=== PATIENT | female | born 1965 | race Caucasian/White ===

== ENCOUNTER 2017-11-08 14:45 | Emergency (ER) | payer MEDICARE, OTHER ==
[~2017-11-08] VITALS: Ht 162.6 cm; Wt 198.7 kg
[~2017-11-08 14:45] MED LIST: ALBU90OI; ALBU90OI6 INH; ALBU90OI61; AMLO10 PO; ATOR80 PO; BACL20 PO; BENA10; BENA20 PO; BENZ100A; BENZ100A PO; BUTRANS1 EAC1; Bactrim 400-801 EACH PO; CARI350 PO; CIPR500 PO; CLIN150; CLIN300 PO; CULTURELLE1 EACH; CYCL10 PO; DIAZ2 PO; DICL.1SO OD; DIPH50; DULO60 PO; ENOX100I SUBQ; ERGO400 PO; ESCI10; ESCI10 PO; ESOM20; ESOM20 PO; FEXO180; FLUSAL5005; FURO20; FURO40 PO; GABA300 PO; GLUCOSE BITS1 GM PO; HYDACE5 PO; HYDACE7.5L; HYDCHL25 PO; HYDCOR2.5C PR; HYDMOR2 PO; Humalog; INSULANI SUBQ; LEVSOD137 PO; LIDO5TP; LIDO5TP TOP; LOSA50 PO; METF500; METF500 PO; METO2.5; Mirena1 EACH; NAPR500 PO; NAPR500EC; NEBI10 PO; NEBI5 PO; NITR.4SL; NITR.4SL SL; OMEP20ER; OXYC5; POTCHL20ER; POTCHL20ER PO; PRAV10 PO; PROM25; PROM25 PO; Pyridium200 MG PO; RXCLIN PO; SPIHYD PO; TIOT18; TOLT4; TRAACE; TRAACE PO; Zofran Odt4 MG SL
[2017-11-08] MEDS ORDERED: Bactrim Ds Tab1 EACH PO (15:56)
[2018-09-24] MEDS ORDERED: TOUJEO MAX300 UNIT/1 (19:20)
[2018-09-24] MEDS ORDERED: CEPH500 PO (19:32)
[2018-09-24] MEDS ORDERED: Bactrim Ds Tab1 EACH PO (19:32)
== END 2017-11-08 16:05 | disposition home or self-care (01) ==
LOC: ER 14:45
DX: L03.116 Cellulitis of left lower limb (principal); K21.9 Gastro-esophageal reflux disease without esophagitis; E11.9 Type 2 diabetes mellitus without complications; G47.30 Sleep apnea, unspecified; E78.5 Hyperlipidemia, unspecified; Z88.1 Allergy status to other antibiotic agents; Z88.5 Allergy status to narcotic agent; Z88.6 Allergy status to analgesic agent; Z88.0 Allergy status to penicillin; Z88.8 Allergy status to other drugs, medicaments and biological substances; Z79.4 Long term (current) use of insulin; Z79.899 Other long term (current) drug therapy; Z98.890 Other specified postprocedural states; Z87.891 Personal history of nicotine dependence
CPT/HCPCS: 99282

== ENCOUNTER 2018-06-28 09:21 | Inpatient (IN) | payer MEDICARE, OTHER ==
[~2018-06-28] VITALS: Ht 172.7 cm; Wt 225.0 kg
[~2018-06-28 09:21] MED LIST changes: +Bactrim Ds Tab1 EACH PO
[2018-06-28 09:42] LABS: BASOPHILS ABSOLUTE AUTO 0.04 K/mm3 (0.00-0.23); BASOPHILS PERCENT AUTO 1 % (0-2); EOSINOPHILS ABSOLUTE AUTO 0.35 K/mm3 (0.00-0.68); EOSINOPHILS PERCENT AUTO 6 % (0-6); Hematocrit 39.1 % (33.0-51.0); Hemoglobin 12.3 g/dL (11.5-16.0); IMMATURE GRAN ABSOLUTE AUTO 0.04 K/mm3 (0.00-0.10); IMMATURE GRAN PERCENT AUTO 1 % (0-1); LYMPHOCYTES ABSOLUTE AUTO 2.16 K/mm3 (0.84-5.20); LYMPHOCYTES PERCENT AUTO 36 % (21-46); MONOCYTES ABSOLUTE AUTO 0.32 K/mm3 (0.16-1.47); MONOCYTES PERCENT AUTO 5 % (4-13); Mean Corpuscular HGB Conc 31.5 g/dL (31.5-36.5); Mean Corpuscular Volume 92 fL (80-100); Mean Platelet Volume 10.6 fL (9.1-12.4); NEUTROPHILS ABSOLUTE AUTO 3.12 K/mm3 (1.96-9.15); NEUTROPHILS PERCENT AUTO 52 % (41-73); Platelet Count 175 K/mm3 (150-400); RDW Coefficient Variation 15.6 % (11.7-14.2); RDW Standard Deviation 52.7 fL (35.1-46.3); Red Blood Cell Count 4.24 M/mm3 (3.80-5.20); White Blood Cell Count 6.03 K/mm3 (4.00-11.30)
[2018-06-28 10:03] LABS: Alanine Aminotransfer (ALT/SGP 42 U/L (12-78); Albumin, Blood 3.4 g/dL (3.4-5.0); Albumin/Globulin Ratio 0.8 (0.8-1.8); Alk Phos 192 U/L (50-136); Anion Gap 9 mmol/L (6-16); Aspartate Aminotrans (AST/SGOT 68 U/L (12-37); Bilirubin, Total 1.1 mg/dL (0.1-1.0); Blood Urea Nitrogen 23 mg/dL (8-24); Bun/Creatinine Ratio 18.7 (12.0-20.0); CO2, Blood 25 mmol/L (21-32); Chloride, Blood 106 mmol/L (98-108); Creatinine, Blood 1.23 mg/dL (0.40-1.00); Globulin, Blood 4.4 g/dL (2.2-4.0); Glomerular Filtration Rate 48 (60-); Glucose, Blood 175 mg/dL (70-99); Potassium, Blood 4.7 mmol/L (3.5-5.5); Sodium, Blood 140 mmol/L (136-145); Total Protein, Blood 7.8 g/dL (6.4-8.2); Troponin I <0.015 ng/mL (0.000-0.040)
[2018-06-28 12:11] LABS: PCO2 Arterial 43.1 mmHg (35-45); PO2 Arterial 77.2 mmHg (80-100); pH Blood Arterial 7.37 (7.35-7.45)
[2018-06-28] MEDS ORDERED: TORSE20 PO (15:40)
[2018-06-28] MEDS ORDERED: Nexium40 MG PO (15:50)
[2018-06-28] MEDS ORDERED: OXYC5 PO (15:52)
[2018-06-28 19:46] LABS: CPK Creatine Kinase 167 U/L (26-193); Creatine Kinase MB 1.9 ng/mL (0.0-3.6); Creatine Kinase MB Index 1.1 (0.0-4.0)
[2018-06-28 20:07] LABS: Troponin I <0.015 ng/mL (0.000-0.040)
[2018-06-29 02:34] LABS: Alanine Aminotransfer (ALT/SGP 33 U/L (12-78); Albumin, Blood 2.9 g/dL (3.4-5.0); Albumin/Globulin Ratio 0.8 (0.8-1.8); Alk Phos 152 U/L (50-136); Anion Gap 8 mmol/L (6-16); Aspartate Aminotrans (AST/SGOT 45 U/L (12-37); Bilirubin, Direct 0.5 mg/dL (0.0-0.3); Bilirubin, Indirect 1.1 mg/dL (0.1-0.7); Bilirubin, Total 1.6 mg/dL (0.1-1.0); Blood Urea Nitrogen 27 mg/dL (8-24); Bun/Creatinine Ratio 15.8 (12.0-20.0); CHOL/HDL RATIO 5.8; CO2, Blood 24 mmol/L (21-32); Calcium, Blood 7.8 mg/dL (8.5-10.1); Chloride, Blood 104 mmol/L (98-108); Cholesterol 175 mg/dL (50-200); Creatinine, Blood 1.71 mg/dL (0.40-1.00); Globulin, Blood 3.8 g/dL (2.2-4.0); Glomerular Filtration Rate 33 (60-); Glucose, Blood 198 mg/dL (70-99); HDL Cholesterol 30 mg/dL (>39); Low Density Lipoprotein Chol 119 mg/dL (0-110); Potassium, Blood 4.4 mmol/L (3.5-5.5); Sodium, Blood 136 mmol/L (136-145); Total Protein, Blood 6.7 g/dL (6.4-8.2); Triglycerides 130 mg/dL (30-160); Troponin I <0.015 ng/mL (0.000-0.040); Very Low Density Lipoprot Chol 26 mg/dL (6-32)
[2018-06-29 09:55] LABS: Hematocrit 31.4 % (33.0-51.0); Mean Corpuscular HGB Conc 31.8 g/dL (31.5-36.5); Mean Corpuscular Volume 94 fL (80-100); Mean Platelet Volume 10.7 fL (9.1-12.4); Platelet Count 119 K/mm3 (150-400); RDW Coefficient Variation 15.7 % (11.7-14.2); RDW Standard Deviation 54.3 fL (35.1-46.3); Red Blood Cell Count 3.33 M/mm3 (3.80-5.20); White Blood Cell Count 8.19 K/mm3 (4.00-11.30)
[2018-06-29] MEDS ORDERED: DIPH50 PO (17:56)
[2018-06-30 05:51] LABS: Albumin, Blood 2.9 g/dL (3.4-5.0); Albumin/Globulin Ratio 0.7 (0.8-1.8); Bilirubin, Total 1.3 mg/dL (0.1-1.0); Creatinine, Blood 2.76 mg/dL (0.40-1.00); Globulin, Blood 4.2 g/dL (2.2-4.0); Potassium, Blood 4.6 mmol/L (3.5-5.5); Total Protein, Blood 7.1 g/dL (6.4-8.2)
[2018-06-30 16:07] LABS: Bun/Creatinine Ratio 15.9 (12.0-20.0); Calcium, Blood 8.1 mg/dL (8.5-10.1); Creatinine, Blood 2.52 mg/dL (0.40-1.00); Potassium, Blood 4.5 mmol/L (3.5-5.5)
[2018-06-30 19:31] LABS: Source, Urine Clean Catch
[2018-06-30 19:39] LABS: Appearance, Urine Clear (Clear); Bilirubin, Urine Neg (Neg); Blood, Urine 4+ (Neg); Color, Urine Yellow (P-Yellow); Glucose Qualitative, Urine Neg (Neg); Ketones, Urine Neg (Neg); Leukocyte Esterase, Urine 1+ (Neg); Nitrite, Urine Neg (Neg); Protein, Urine 1+ (Neg); Specific Gravity, Urine 1.015 (1.003-1.022); Urobilinogen, Urine NORM (Normal)
[2018-06-30 20:09] LABS: Bacteria Mod /hpf; Squamous Epithelial Cells Few /hpf (Few)
[2018-07-01 05:22] LABS: Hematocrit 29.5 % (33.0-51.0); Hemoglobin 9.5 g/dL (11.5-16.0); Mean Corpuscular HGB 29.3 pg (26.0-34.0); Mean Corpuscular HGB Conc 32.2 g/dL (31.5-36.5); Mean Platelet Volume 10.9 fL (9.1-12.4); Platelet Count 131 K/mm3 (150-400); RDW Coefficient Variation 15.4 % (11.7-14.2); RDW Standard Deviation 50.9 fL (35.1-46.3); Red Blood Cell Count 3.24 M/mm3 (3.80-5.20); White Blood Cell Count 6.11 K/mm3 (4.00-11.30)
[2018-07-01 05:24] LABS: Mean Corpuscular Volume 91 fL (80-100)
[2018-07-01 05:54] LABS: Albumin, Blood 2.6 g/dL (3.4-5.0); Albumin/Globulin Ratio 0.7 (0.8-1.8); Bun/Creatinine Ratio 19.7 (12.0-20.0); Calcium, Blood 7.6 mg/dL (8.5-10.1); Creatinine, Blood 2.34 mg/dL (0.40-1.00); Globulin, Blood 3.7 g/dL (2.2-4.0); Potassium, Blood 4.5 mmol/L (3.5-5.5); Total Protein, Blood 6.3 g/dL (6.4-8.2)
[2018-07-01 08:16] LABS: PCO2 Arterial 44.2 mmHg (35-45); PO2 Arterial 66.4 mmHg (80-100); pH Blood Arterial 7.34 (7.35-7.45)
[2018-07-02 06:05] LABS: Anion Gap 10 mmol/L (6-16); Blood Urea Nitrogen 48 mg/dL (8-24); CO2, Blood 22 mmol/L (21-32); Calcium, Blood 7.9 mg/dL (8.5-10.1); Chloride, Blood 101 mmol/L (98-108); Glomerular Filtration Rate 28 (60-); Glucose, Blood 178 mg/dL (70-99); Magnesium, Blood 2.3 mg/dL (1.6-2.4); Potassium, Blood 4.9 mmol/L (3.5-5.5); Sodium, Blood 133 mmol/L (136-145)
[2018-07-02 06:10] LABS: Hematocrit 32.4 % (33.0-51.0); Hemoglobin 10.5 g/dL (11.5-16.0); Mean Corpuscular HGB 29.2 pg (26.0-34.0); Mean Corpuscular HGB Conc 32.4 g/dL (31.5-36.5); Mean Corpuscular Volume 90 fL (80-100); Mean Platelet Volume 11.2 fL (9.1-12.4); Platelet Count 142 K/mm3 (150-400); RDW Coefficient Variation 15.5 % (11.7-14.2); RDW Standard Deviation 51.2 fL (35.1-46.3); Red Blood Cell Count 3.59 M/mm3 (3.80-5.20); White Blood Cell Count 5.83 K/mm3 (4.00-11.30)
[2018-07-03 05:14] LABS: Hematocrit 32.3 % (33.0-51.0); Hemoglobin 10.4 g/dL (11.5-16.0)
[2018-07-03 05:34] LABS: Albumin, Blood 2.9 g/dL (3.4-5.0); Anion Gap 8 mmol/L (6-16); Blood Urea Nitrogen 43 mg/dL (8-24); Bun/Creatinine Ratio 25.3 (12.0-20.0); CO2, Blood 27 mmol/L (21-32); Calcium, Blood 8.2 mg/dL (8.5-10.1); Chloride, Blood 102 mmol/L (98-108); Glomerular Filtration Rate 33 (60-); Glucose, Blood 208 mg/dL (70-99); Magnesium, Blood 2.1 mg/dL (1.6-2.4); Phosphorus, Blood 3.6 mg/dL (2.5-4.9); Potassium, Blood 4.4 mmol/L (3.5-5.5); Sodium, Blood 137 mmol/L (136-145)
[2018-07-03] MEDS ORDERED: DULO30 PO (18:15)
[2018-07-04 05:13] LABS: Hematocrit 32.8 % (33.0-51.0); Hemoglobin 10.6 g/dL (11.5-16.0)
[2018-07-04 06:00] LABS: Albumin, Blood 2.8 g/dL (3.4-5.0); Anion Gap 8 mmol/L (6-16); Blood Urea Nitrogen 43 mg/dL (8-24); Bun/Creatinine Ratio 29.5 (12.0-20.0); CO2, Blood 28 mmol/L (21-32); Calcium, Blood 8.3 mg/dL (8.5-10.1); Chloride, Blood 102 mmol/L (98-108); Creatinine, Blood 1.46 mg/dL (0.40-1.00); Glomerular Filtration Rate 40 (60-); Glucose, Blood 182 mg/dL (70-99); Phosphorus, Blood 3.8 mg/dL (2.5-4.9); Potassium, Blood 4.3 mmol/L (3.5-5.5); Sodium, Blood 138 mmol/L (136-145)
[2018-07-04 10:12] LABS: PCO2 Arterial 44.9 mmHg (35-45); PO2 Arterial 81.6 mmHg (80-100); pH Blood Arterial 7.41 (7.35-7.45)
[2018-07-04 14:38] LABS: Source, Urine Catheter
[2018-07-04 14:41] LABS: Appearance, Urine Hazy (Clear); Bilirubin, Urine Neg (Neg); Blood, Urine 1+ (Neg); Color, Urine Yellow (P-Yellow); Glucose Qualitative, Urine Neg (Neg); Ketones, Urine Neg (Neg); Leukocyte Esterase, Urine Neg (Neg); Nitrite, Urine Pos (Neg); Protein, Urine Neg (Neg); Urobilinogen, Urine NORM (Normal)
[2018-07-04 15:27] LABS: Amorphous Light (0-Heavy); Bacteria Few /hpf; Red Blood Cells, Urine Not Seen /hpf (0-2); Squamous Epithelial Cells Mod /hpf (Few); Triple Phosphate Crystals Few /hpf
[2018-07-05 05:15] LABS: Hematocrit 32.1 % (33.0-51.0); Hemoglobin 10.4 g/dL (11.5-16.0)
[2018-07-05 05:39] LABS: Albumin, Blood 2.6 g/dL (3.4-5.0); Anion Gap 9 mmol/L (6-16); Blood Urea Nitrogen 49 mg/dL (8-24); Bun/Creatinine Ratio 32.5 (12.0-20.0); CO2, Blood 26 mmol/L (21-32); Calcium, Blood 7.9 mg/dL (8.5-10.1); Chloride, Blood 102 mmol/L (98-108); Creatinine, Blood 1.51 mg/dL (0.40-1.00); Glomerular Filtration Rate 38 (60-); Glucose, Blood 220 mg/dL (70-99); Magnesium, Blood 2.1 mg/dL (1.6-2.4); Potassium, Blood 4.5 mmol/L (3.5-5.5); Sodium, Blood 137 mmol/L (136-145)
[2018-07-05] MEDS ORDERED: Cipro250 MG PO (13:20)
[2018-07-05] MEDS ORDERED: ACET325 PO (13:20)
[2018-07-05] MEDS ORDERED: ALBU3IS INH (13:21)
[2018-07-05] MEDS ORDERED: ROPI.25 PO (13:24)
[2018-07-05] MEDS ORDERED: ELIQUIS5 MG PO (13:25)
== END 2018-07-05 15:10 | DRG 176 ==
LOC: ER 09:21 → MEDS 09:22 → ENPENDDIS 07-05 09:30 → MEDS 07-05 15:10
PROVIDERS: Emergency Medicine; Hospitalist; Internal Medicine; Internal Medicine Nephrology
DX: I26.99 Other pulmonary embolism without acute cor pulmonale (principal); E66.2 Morbid (severe) obesity with alveolar hypoventilation; Z68.44 Body mass index [BMI] 60.0-69.9, adult; N17.9 Acute kidney failure, unspecified; N25.81 Secondary hyperparathyroidism of renal origin; K21.9 Gastro-esophageal reflux disease without esophagitis; J30.2 Other seasonal allergic rhinitis; E78.5 Hyperlipidemia, unspecified; Z85.850 Personal history of malignant neoplasm of thyroid; Z86.718 Personal history of other venous thrombosis and embolism; R74.0 Nonspecific elevation of levels of transaminase and lactic acid dehydrogenase [LDH]; I95.9 Hypotension, unspecified; E86.0 Dehydration; L30.4 Erythema intertrigo; N18.2 Chronic kidney disease, stage 2 (mild); E87.70 Fluid overload, unspecified; E86.1 Hypovolemia; R33.9 Retention of urine, unspecified; K59.09 Other constipation; M25.511 Pain in right shoulder; D63.1 Anemia in chronic kidney disease; R53.1 Weakness; G25.81 Restless legs syndrome; Z98.84 Bariatric surgery status; E11.22 Type 2 diabetes mellitus with diabetic chronic kidney disease; I12.9 Hypertensive chronic kidney disease with stage 1 through stage 4 chronic kidney disease, or unspecified chronic kidney disease; Z79.4 Long term (current) use of insulin; Z87.891 Personal history of nicotine dependence
CPT/HCPCS: 36415; 36600; 71046; 74018; 76705; 76770; 80048; 80053; 80061; 80069; 80076; 81001; 82550; 82553; 82803; 82947; 83036; 83735; 83880; 84484; 85014; 85018; 85025; 85027; 85379; 85730; 87077; 87086; 87186; 87493; 93005; 93010; 93308; 93321; 93970; 94640; 94762; 96372; 96374; 96375; 97110; 97162; 97166; 97530; 97535; 99285-25; G8978; G8979; G8987; G8988; J0881; J1650; J1815; J1940; J2060; J2405; J3010; J7030; Q0163

== ENCOUNTER 2018-07-08 15:07 | Inpatient (IN) | payer MEDICARE, OTHER ==
[~2018-07-08] VITALS: Ht 162.6 cm; Wt 252.2 kg
[~2018-07-08 15:07] MED LIST changes: +ACET325 PO; +ALBU3IS INH; +Cipro250 MG PO; +DIPH50 PO; +DULO30 PO; +ELIQUIS5 MG PO; +Nexium40 MG PO; +OXYC5 PO; +ROPI.25 PO; +TORSE20 PO
[2018-07-08 16:02] LABS: PCO2 Arterial 49.4 mmHg (35-45); PO2 Arterial 124 mmHg (80-100); pH Blood Arterial 7.31 (7.35-7.45)
[2018-07-08 16:16] LABS: BASOPHILS ABSOLUTE AUTO 0.03 K/mm3 (0.00-0.23); BASOPHILS PERCENT AUTO 0 % (0-2); EOSINOPHILS ABSOLUTE AUTO 0.11 K/mm3 (0.00-0.68); EOSINOPHILS PERCENT AUTO 1 % (0-6); Hematocrit 34.3 % (33.0-51.0); Hemoglobin 11.1 g/dL (11.5-16.0); IMMATURE GRAN ABSOLUTE AUTO 0.15 K/mm3 (0.00-0.10); IMMATURE GRAN PERCENT AUTO 1 % (0-1); LYMPHOCYTES ABSOLUTE AUTO 2.26 K/mm3 (0.84-5.20); LYMPHOCYTES PERCENT AUTO 21 % (21-46); MONOCYTES PERCENT AUTO 6 % (4-13); Mean Corpuscular HGB 29.8 pg (26.0-34.0); Mean Corpuscular HGB Conc 32.4 g/dL (31.5-36.5); Mean Corpuscular Volume 92 fL (80-100); Mean Platelet Volume 10.6 fL (9.1-12.4); NEUTROPHILS ABSOLUTE AUTO 7.65 K/mm3 (1.96-9.15); NEUTROPHILS PERCENT AUTO 70 % (41-73); Platelet Count 196 K/mm3 (150-400); RDW Coefficient Variation 15.7 % (11.7-14.2); RDW Standard Deviation 53.2 fL (35.1-46.3); Red Blood Cell Count 3.72 M/mm3 (3.80-5.20)
[2018-07-08 16:34] LABS: Source, Urine Catheter
[2018-07-08 16:42] LABS: Bilirubin, Urine Neg (Neg); Blood, Urine 5+ (Neg); Glucose Qualitative, Urine Neg (Neg); Ketones, Urine Neg (Neg); Leukocyte Esterase, Urine 3+ (Neg); Nitrite, Urine Neg (Neg); Protein, Urine 2+ (Neg); Urobilinogen, Urine NORM (Normal)
[2018-07-08 16:45] LABS: Albumin, Blood 2.8 g/dL (3.4-5.0); Albumin/Globulin Ratio 0.6 (0.8-1.8); Bilirubin, Total 1.3 mg/dL (0.1-1.0); Bun/Creatinine Ratio 26.3 (12.0-20.0); Calcium, Blood 7.6 mg/dL (8.5-10.1); Creatinine, Blood 3.39 mg/dL (0.40-1.00); Globulin, Blood 4.8 g/dL (2.2-4.0); Potassium, Blood 4.8 mmol/L (3.5-5.5); Total Protein, Blood 7.6 g/dL (6.4-8.2)
[2018-07-08 16:50] LABS: Appearance, Urine Cloudy (Clear); Color, Urine Yellow (P-Yellow)
[2018-07-08 16:51] LABS: Bacteria Many /hpf; Squamous Epithelial Cells Few /hpf (Few); White Blood Cells, Urine TNTC /hpf (0-5)
[2018-07-08] MEDS ORDERED: Acetaminophen650 M1 PO (17:39)
[2018-07-08] MEDS ORDERED: ATORVASTATIN CA80 MG PO (17:40)
[2018-07-08] MEDS ORDERED: AMLO5 PO (17:40)
[2018-07-08] MEDS ORDERED: BACL20 PO (17:40)
[2018-07-08] MEDS ORDERED: DIPH50 PO (17:41)
[2018-07-08] MEDS ORDERED: CIPR250 PO (17:43)
[2018-07-08] MEDS ORDERED: LOSA50 PO (17:44)
[2018-07-08] MEDS ORDERED: DULO60 PO (17:45)
[2018-07-08] MEDS ORDERED: BISA10S PR (17:46)
[2018-07-08] MEDS ORDERED: ELIQUIS5 MG PO (17:47)
[2018-07-08 17:48] LABS: Free Thyroxine 1.26 ng/dL (0.70-1.60); Thyroid Stimulating Hormone 11.3 uIU/mL (0.360-4.800)
[2018-07-08] MEDS ORDERED: NITR.4SL SL (17:50)
[2018-07-08] MEDS ORDERED: Bystolic20 MG PO (17:51)
[2018-07-08] MEDS ORDERED: COMBIVENT RESPIM4 GM INH (17:54)
[2018-07-08] MEDS ORDERED: Nexium40 MG PO (17:55)
[2018-07-08] MEDS ORDERED: Humalog100 UNIT/1 SC ×3 (17:58→18:00)
[2018-07-08] MEDS ORDERED: ALBU90OI6 INH (18:01)
[2018-07-08] MEDS ORDERED: OXYC5 (18:01)
[2018-07-08] MEDS ORDERED: SYNTHROID25 MCG PO (18:02)
[2018-07-08] MEDS ORDERED: TORSE20 PO (18:03)
[2018-07-08] MEDS ORDERED: BENZ100A PO (18:03)
[2018-07-08] MEDS ORDERED: ONDA4ODT MM (18:04)
[2018-07-08] MEDS ORDERED: Tubersol (5 U/0.1 ML ID (18:04)
[2018-07-08 21:31] LABS: PCO2 Arterial 50.5 mmHg (35-45); PO2 Arterial 118 mmHg (80-100); pH Blood Arterial 7.32 (7.35-7.45)
[2018-07-08 22:37] LABS: Albumin, Blood 2.5 g/dL (3.4-5.0); Albumin/Globulin Ratio 0.6 (0.8-1.8); Bun/Creatinine Ratio 28.2 (12.0-20.0); Creatinine, Blood 3.05 mg/dL (0.40-1.00); Globulin, Blood 4.5 g/dL (2.2-4.0); Potassium, Blood 4.8 mmol/L (3.5-5.5)
[2018-07-09 04:43] LABS: BASOPHILS ABSOLUTE AUTO 0.03 K/mm3 (0.00-0.23); BASOPHILS PERCENT AUTO 0 % (0-2); EOSINOPHILS ABSOLUTE AUTO 0.18 K/mm3 (0.00-0.68); EOSINOPHILS PERCENT AUTO 2 % (0-6); Hematocrit 33.1 % (33.0-51.0); Hemoglobin 10.5 g/dL (11.5-16.0); IMMATURE GRAN ABSOLUTE AUTO 0.13 K/mm3 (0.00-0.10); IMMATURE GRAN PERCENT AUTO 1 % (0-1); LYMPHOCYTES ABSOLUTE AUTO 2.12 K/mm3 (0.84-5.20); LYMPHOCYTES PERCENT AUTO 21 % (21-46); MONOCYTES ABSOLUTE AUTO 0.86 K/mm3 (0.16-1.47); MONOCYTES PERCENT AUTO 9 % (4-13); Mean Corpuscular HGB 28.9 pg (26.0-34.0); Mean Corpuscular HGB Conc 31.7 g/dL (31.5-36.5); Mean Corpuscular Volume 91 fL (80-100); Mean Platelet Volume 10.6 fL (9.1-12.4); NEUTROPHILS ABSOLUTE AUTO 6.73 K/mm3 (1.96-9.15); NEUTROPHILS PERCENT AUTO 67 % (41-73); NRBC ABSOLUTE 0.02 K/mm3 (0.00-0.02); NRBC Auto 0.2 /100 WBC (0.0-0.2); Platelet Count 171 K/mm3 (150-400); RDW Coefficient Variation 15.6 % (11.7-14.2); RDW Standard Deviation 51.3 fL (35.1-46.3); Red Blood Cell Count 3.63 M/mm3 (3.80-5.20); White Blood Cell Count 10.05 K/mm3 (4.00-11.30)
[2018-07-09 05:09] LABS: Albumin, Blood 2.6 g/dL (3.4-5.0); Albumin/Globulin Ratio 0.6 (0.8-1.8); Bilirubin, Total 1.2 mg/dL (0.1-1.0); Bun/Creatinine Ratio 30.9 (12.0-20.0); Calcium, Blood 7.1 mg/dL (8.5-10.1); Creatinine, Blood 2.82 mg/dL (0.40-1.00); Globulin, Blood 4.6 g/dL (2.2-4.0); Potassium, Blood 4.6 mmol/L (3.5-5.5); Total Protein, Blood 7.2 g/dL (6.4-8.2)
[2018-07-10 03:54] LABS: BASOPHILS ABSOLUTE AUTO 0.02 K/mm3 (0.00-0.23); BASOPHILS PERCENT AUTO 0 % (0-2); EOSINOPHILS ABSOLUTE AUTO 0.22 K/mm3 (0.00-0.68); EOSINOPHILS PERCENT AUTO 3 % (0-6); Hematocrit 30.7 % (33.0-51.0); Hemoglobin 9.8 g/dL (11.5-16.0); IMMATURE GRAN ABSOLUTE AUTO 0.08 K/mm3 (0.00-0.10); IMMATURE GRAN PERCENT AUTO 1 % (0-1); LYMPHOCYTES ABSOLUTE AUTO 1.73 K/mm3 (0.84-5.20); LYMPHOCYTES PERCENT AUTO 21 % (21-46); MONOCYTES ABSOLUTE AUTO 0.78 K/mm3 (0.16-1.47); MONOCYTES PERCENT AUTO 9 % (4-13); Mean Corpuscular HGB Conc 31.9 g/dL (31.5-36.5); Mean Platelet Volume 10.8 fL (9.1-12.4); NEUTROPHILS ABSOLUTE AUTO 5.48 K/mm3 (1.96-9.15); NEUTROPHILS PERCENT AUTO 66 % (41-73); Platelet Count 121 K/mm3 (150-400); RDW Coefficient Variation 15.7 % (11.7-14.2); Red Blood Cell Count 3.27 M/mm3 (3.80-5.20); White Blood Cell Count 8.31 K/mm3 (4.00-11.30)
[2018-07-10 03:55] LABS: Mean Corpuscular Volume 94 fL (80-100)
[2018-07-10 04:12] LABS: Albumin, Blood 2.4 g/dL (3.4-5.0); Albumin/Globulin Ratio 0.6 (0.8-1.8); Bilirubin, Total 1.1 mg/dL (0.1-1.0); Bun/Creatinine Ratio 35.9 (12.0-20.0); Calcium, Blood 6.8 mg/dL (8.5-10.1); Creatinine, Blood 2.34 mg/dL (0.40-1.00); Globulin, Blood 4.1 g/dL (2.2-4.0); Magnesium, Blood 2.5 mg/dL (1.6-2.4); Potassium, Blood 4.6 mmol/L (3.5-5.5); Total Protein, Blood 6.5 g/dL (6.4-8.2)
[2018-07-11 03:34] LABS: BASOPHILS ABSOLUTE AUTO 0.03 K/mm3 (0.00-0.23); BASOPHILS PERCENT AUTO 0 % (0-2); EOSINOPHILS ABSOLUTE AUTO 0.27 K/mm3 (0.00-0.68); EOSINOPHILS PERCENT AUTO 3 % (0-6); Hematocrit 32.7 % (33.0-51.0); Hemoglobin 10.4 g/dL (11.5-16.0); IMMATURE GRAN PERCENT AUTO 1 % (0-1); LYMPHOCYTES ABSOLUTE AUTO 1.54 K/mm3 (0.84-5.20); LYMPHOCYTES PERCENT AUTO 19 % (21-46); MONOCYTES ABSOLUTE AUTO 0.73 K/mm3 (0.16-1.47); MONOCYTES PERCENT AUTO 9 % (4-13); Mean Corpuscular HGB 29.6 pg (26.0-34.0); Mean Corpuscular HGB Conc 31.8 g/dL (31.5-36.5); Mean Corpuscular Volume 93 fL (80-100); NEUTROPHILS PERCENT AUTO 68 % (41-73); Platelet Count 100 K/mm3 (150-400); RDW Coefficient Variation 15.7 % (11.7-14.2); RDW Standard Deviation 53.5 fL (35.1-46.3); Red Blood Cell Count 3.51 M/mm3 (3.80-5.20); White Blood Cell Count 8.27 K/mm3 (4.00-11.30)
[2018-07-11 04:00] LABS: Albumin, Blood 2.6 g/dL (3.4-5.0); Albumin/Globulin Ratio 0.6 (0.8-1.8); Bilirubin, Total 1.2 mg/dL (0.1-1.0); Bun/Creatinine Ratio 40.9 (12.0-20.0); Creatinine, Blood 1.76 mg/dL (0.40-1.00); Globulin, Blood 4.5 g/dL (2.2-4.0); Potassium, Blood 4.5 mmol/L (3.5-5.5); Total Protein, Blood 7.1 g/dL (6.4-8.2)
[2018-07-11 05:37] LABS: PO2 Arterial 92.4 mmHg (80-100); pH Blood Arterial 7.34 (7.35-7.45)
[2018-07-12 03:52] LABS: BASOPHILS ABSOLUTE AUTO 0.02 K/mm3 (0.00-0.23); BASOPHILS PERCENT AUTO 0 % (0-2); EOSINOPHILS ABSOLUTE AUTO 0.21 K/mm3 (0.00-0.68); EOSINOPHILS PERCENT AUTO 3 % (0-6); Hematocrit 32.6 % (33.0-51.0); Hemoglobin 10.2 g/dL (11.5-16.0); IMMATURE GRAN ABSOLUTE AUTO 0.08 K/mm3 (0.00-0.10); IMMATURE GRAN PERCENT AUTO 1 % (0-1); LYMPHOCYTES ABSOLUTE AUTO 1.08 K/mm3 (0.84-5.20); LYMPHOCYTES PERCENT AUTO 15 % (21-46); MONOCYTES ABSOLUTE AUTO 0.64 K/mm3 (0.16-1.47); MONOCYTES PERCENT AUTO 9 % (4-13); Mean Corpuscular HGB 29.4 pg (26.0-34.0); Mean Corpuscular HGB Conc 31.3 g/dL (31.5-36.5); Mean Corpuscular Volume 94 fL (80-100); Mean Platelet Volume 10.5 fL (9.1-12.4); NEUTROPHILS PERCENT AUTO 72 % (41-73); Platelet Count 85 K/mm3 (150-400); RDW Coefficient Variation 15.5 % (11.7-14.2); RDW Standard Deviation 52.9 fL (35.1-46.3); Red Blood Cell Count 3.47 M/mm3 (3.80-5.20); White Blood Cell Count 7.23 K/mm3 (4.00-11.30)
[2018-07-12 04:13] LABS: Albumin, Blood 2.5 g/dL (3.4-5.0); Albumin/Globulin Ratio 0.6 (0.8-1.8); Bilirubin, Total 1.2 mg/dL (0.1-1.0); Bun/Creatinine Ratio 40.6 (12.0-20.0); Calcium, Blood 7.1 mg/dL (8.5-10.1); Creatinine, Blood 1.33 mg/dL (0.40-1.00); Globulin, Blood 4.5 g/dL (2.2-4.0); Potassium, Blood 4.7 mmol/L (3.5-5.5)
[2018-07-12 04:16] LABS: Thyroid Stimulating Hormone 16.4 uIU/mL (0.360-4.800)
[2018-07-14 07:02] LABS: BASOPHILS ABSOLUTE AUTO 0.03 K/mm3 (0.00-0.23); BASOPHILS PERCENT AUTO 1 % (0-2); EOSINOPHILS ABSOLUTE AUTO 0.18 K/mm3 (0.00-0.68); EOSINOPHILS PERCENT AUTO 3 % (0-6); Hematocrit 32.2 % (33.0-51.0); Hemoglobin 10.2 g/dL (11.5-16.0); IMMATURE GRAN ABSOLUTE AUTO 0.05 K/mm3 (0.00-0.10); IMMATURE GRAN PERCENT AUTO 1 % (0-1); LYMPHOCYTES ABSOLUTE AUTO 1.11 K/mm3 (0.84-5.20); LYMPHOCYTES PERCENT AUTO 19 % (21-46); MONOCYTES ABSOLUTE AUTO 0.51 K/mm3 (0.16-1.47); MONOCYTES PERCENT AUTO 9 % (4-13); Mean Corpuscular HGB 29.8 pg (26.0-34.0); Mean Corpuscular HGB Conc 31.7 g/dL (31.5-36.5); Mean Corpuscular Volume 94 fL (80-100); Mean Platelet Volume 10.9 fL (9.1-12.4); NEUTROPHILS ABSOLUTE AUTO 3.99 K/mm3 (1.96-9.15); NEUTROPHILS PERCENT AUTO 68 % (41-73); Platelet Count 74 K/mm3 (150-400); RDW Coefficient Variation 15.6 % (11.7-14.2); RDW Standard Deviation 53.2 fL (35.1-46.3); Red Blood Cell Count 3.42 M/mm3 (3.80-5.20); White Blood Cell Count 5.87 K/mm3 (4.00-11.30)
[2018-07-14 07:15] LABS: Bun/Creatinine Ratio 28.8 (12.0-20.0); Calcium, Blood 7.7 mg/dL (8.5-10.1); Creatinine, Blood 1.04 mg/dL (0.40-1.00); Potassium, Blood 4.4 mmol/L (3.5-5.5)
[2018-07-17] MEDS ORDERED: ALBU2.5V5 NEB (13:37)
[2018-07-17] MEDS ORDERED: ONDA4ODT MM (13:58)
== END 2018-07-17 17:21 | DRG 682 ==
LOC: PCU → ER 15:07 → PCU 17:46 → MEDS 17:46 → PCU 20:12 → MEDS 07-12 19:50 → ENPENDDIS 07-17 09:24 → MEDS 07-17 17:21
PROVIDERS: Emergency Medicine; Internal Medicine; Nurse Practitioner Acute Care; Ophthalmology
DX: N17.9 Acute kidney failure, unspecified (principal); G93.41 Metabolic encephalopathy; I26.99 Other pulmonary embolism without acute cor pulmonale; J96.11 Chronic respiratory failure with hypoxia; T83.511A Infection and inflammatory reaction due to indwelling urethral catheter, initial encounter; Z68.45 Body mass index [BMI] 70 or greater, adult; E87.1 Hypo-osmolality and hyponatremia; E66.2 Morbid (severe) obesity with alveolar hypoventilation; N39.0 Urinary tract infection, site not specified; D69.6 Thrombocytopenia, unspecified; E88.81 Metabolic syndrome and other insulin resistance; E87.8 Other disorders of electrolyte and fluid balance, not elsewhere classified; K72.90 Hepatic failure, unspecified without coma; K75.81 Nonalcoholic steatohepatitis (NASH); K74.60 Unspecified cirrhosis of liver; B96.4 Proteus (mirabilis) (morganii) as the cause of diseases classified elsewhere; E86.0 Dehydration; E78.5 Hyperlipidemia, unspecified; R00.1 Bradycardia, unspecified; Z66 Do not resuscitate; E03.9 Hypothyroidism, unspecified; G89.29 Other chronic pain; M54.9 Dorsalgia, unspecified; J45.909 Unspecified asthma, uncomplicated; M62.3 Immobility syndrome (paraplegic); R53.81 Other malaise; I10 Essential (primary) hypertension; E11.9 Type 2 diabetes mellitus without complications; Z86.718 Personal history of other venous thrombosis and embolism; Z85.850 Personal history of malignant neoplasm of thyroid; Z87.11 Personal history of peptic ulcer disease; Z79.899 Other long term (current) drug therapy; Z79.4 Long term (current) use of insulin; Z88.8 Allergy status to other drugs, medicaments and biological substances; Z88.0 Allergy status to penicillin; Z88.5 Allergy status to narcotic agent; Z88.2 Allergy status to sulfonamides; Z99.81 Dependence on supplemental oxygen; Z87.891 Personal history of nicotine dependence; Z99.3 Dependence on wheelchair; Z86.711 Personal history of pulmonary embolism
CPT/HCPCS: 36415; 36600; 71045; 80048; 80053; 81001; 82140; 82803; 82947; 83605; 83735; 84439; 84443; 85025; 87040; 87077; 87086; 87186; 92610; 93005; 93010; 94640; 94660; 94762; 96361; 96374; 97110; 97162; 97166; 97530; 99285-25; G8978; G8979; G8987; G8988; G8996; G8997; G8998; J1956; J2405; J3010; J7030

== ENCOUNTER → 2018-12-05 | Outpatient (CLI) | payer MEDICARE, OTHER ==
[~2018-12-05] MED LIST changes: +ALBU2.5V5 NEB; +AMLO5 PO; +ATORVASTATIN CA80 MG PO; +Acetaminophen650 M1 PO; +BISA10S PR; +Bystolic20 MG PO; +CEPH500 PO; +CIPR250 PO; +COMBIVENT RESPIM4 GM INH; +Humalog100 UNIT/1 SC; +ONDA4ODT MM; +SYNTHROID25 MCG PO; +TOUJEO MAX300 UNIT/1; +Tubersol (5 U/0.1 ML ID
[2018-12-05 17:31] LABS: Creatinine Urine 79.7 mg/dL (27.00-270.00); Protein, Urine Quantitative 22.7 mg/dL (0.0-11.9)
[2018-12-05 17:33] LABS: Microalbumin, Urine Quant. 24.2 mg/L (0.000-20.000)
== END | disposition home or self-care (01) ==
LOC: LAB 12:46 → LAB SHORT 12:46 → LAB FUT 12-02 15:15
PROVIDERS: Internal Medicine Nephrology
DX: N18.3 Chronic kidney disease, stage 3 (moderate) (principal); D63.1 Anemia in chronic kidney disease; N25.81 Secondary hyperparathyroidism of renal origin; E55.9 Vitamin D deficiency, unspecified; E78.00 Pure hypercholesterolemia, unspecified
CPT/HCPCS: 81050; 82043; 82570; 84156

== ENCOUNTER 2019-07-04 13:46 | Inpatient (IN) | payer MEDICARE, OTHER ==
[~2019-07-04] VITALS: Ht 162.6 cm; Wt 220.6 kg
[~2019-07-04 13:46] MED LIST changes: -ALBU2.5V5 NEB; -SYNTHROID25 MCG PO; -TOUJEO MAX300 UNIT/1
[2019-07-04 14:04] LABS: Base Excess Venous -5.2 mmol/L; Bicarbonate Venous 20.3 mmol/L (24.0-30.0); PCO2 Venous 41.7 mmHg (38-42); PO2 Venous 94.8 mmHg (38-42); pH Blood Venous 7.31 (7.34-7.37)
[2019-07-04 14:09] LABS: Hematocrit 31.6 % (33.0-51.0); Hemoglobin 10.1 g/dL (11.5-16.0); Mean Corpuscular HGB 29.2 pg (26.0-34.0); Mean Corpuscular Volume 91 fL (80-100); Mean Platelet Volume 12.4 fL (9.1-12.4); NRBC ABSOLUTE 0.02 K/mm3 (0.00-0.02); NRBC Auto 2.9 /100 WBC (0.0-0.2); Platelet Count 93 K/mm3 (150-400); RDW Coefficient Variation 14.6 % (11.7-14.2); RDW Standard Deviation 49.2 fL (35.1-46.3); Red Blood Cell Count 3.46 M/mm3 (3.80-5.20)
[2019-07-04 14:10] LABS: BASOPHILS PERCENT AUTO 0 % (0-2); EOSINOPHILS ABSOLUTE AUTO 0.01 K/mm3 (0.00-0.68); EOSINOPHILS PERCENT AUTO 2 % (0-6); IMMATURE GRAN ABSOLUTE AUTO 0.01 K/mm3 (0.00-0.10); IMMATURE GRAN PERCENT AUTO 2 % (0-1); LYMPHOCYTES PERCENT AUTO 74 % (21-46); MONOCYTES ABSOLUTE AUTO 0.15 K/mm3 (0.16-1.47); MONOCYTES PERCENT AUTO 22 % (4-13); NEUTROPHILS ABSOLUTE AUTO 0.01 K/mm3 (1.96-9.15); NEUTROPHILS PERCENT AUTO 1 % (41-73)
[2019-07-04 14:11] LABS: White Blood Cell Count 0.68 K/mm3 (4.00-11.30)
[2019-07-04 14:23] LABS: International Normalized Ratio 1.48; Prothrombin Time Results 15.1 Sec (9.7-11.5)
[2019-07-04 14:31] LABS: Alanine Aminotransfer (ALT/SGP 41 U/L (12-78); Albumin, Blood 2.2 g/dL (3.4-5.0); Albumin/Globulin Ratio 0.6 (0.8-1.8); Alk Phos 104 U/L (50-136); Anion Gap 12 mmol/L (6-16); Aspartate Aminotrans (AST/SGOT 50 U/L (12-37); Bilirubin, Total 4.2 mg/dL (0.1-1.0); Blood Urea Nitrogen 36 mg/dL (8-24); Bun/Creatinine Ratio 15.8 (12.0-20.0); CO2, Blood 21 mmol/L (21-32); Calcium, Blood 7.6 mg/dL (8.5-10.1); Chloride, Blood 105 mmol/L (98-108); Creatinine, Blood 2.28 mg/dL (0.40-1.00); Globulin, Blood 3.9 g/dL (2.2-4.0); Glomerular Filtration Rate 24 (60-); Glucose, Blood 210 mg/dL (70-99); Lactate Dehydrogenase (Ld),Bld 275 U/L (100-240); Potassium, Blood 4.4 mmol/L (3.5-5.5); Sodium, Blood 138 mmol/L (136-145); Total Protein, Blood 6.1 g/dL (6.4-8.2); Troponin I <0.015 ng/mL (0.000-0.040)
[2019-07-04] MEDS ORDERED: ELIQUIS5 MG PO (16:20)
[2019-07-04] MEDS ORDERED: EUTHYROX150 MCG PO (16:22)
[2019-07-04] MEDS ORDERED: TORSE20 PO (16:23)
[2019-07-04] MEDS ORDERED: TOUJEO MAX300 UNIT/1 SC (16:23)
[2019-07-04] MEDS ORDERED: LOSA25 PO (16:24)
[2019-07-04] MEDS ORDERED: CLON.1 PO (16:25)
[2019-07-04] MEDS ORDERED: HYDHCL25 PO (16:25)
[2019-07-04] MEDS ORDERED: Humalog100 UNIT/1 SC (16:27)
[2019-07-04] MEDS ORDERED: ALBU2.5V5 NEB (16:38)
[2019-07-04] MEDS ORDERED: NYST100000 SS (16:41)
[2019-07-04] MEDS ORDERED: ALBU90OI6 INH (16:43)
--- NOTE | 2019-07-04 17:29 | NUR ---
Pt in ER on pressors and bipap. Review of past visits to assist nurse with weight until we can weigh her for dosing of meds. pt hsa polst on file that states full code and treatments. caregiver here family on their way. pt able to answer brief questions.
[2019-07-04] MEDS ORDERED: BENADRYL25 MG PO (17:30)
[2019-07-04] MEDS ORDERED: DULO60 PO (17:30)
[2019-07-04] MEDS ORDERED: Nexium40 MG PO (17:30)
[2019-07-04] MEDS ORDERED: Flonase 0.05% N16 GM (17:31)
[2019-07-04] MEDS ORDERED: Glucose4 GM PO (17:32)
[2019-07-04] MEDS ORDERED: Culturelle1 CAP PO (17:33)
[2019-07-04] MEDS ORDERED: Amitiza8 MCG PO (17:35)
[2019-07-04] MEDS ORDERED: NITR.4SL SL (17:36)
[2019-07-04] MEDS ORDERED: ONDA4ODT MM (17:37)
[2019-07-04] MEDS ORDERED: Crestor40 MG PO (17:38)
[2019-07-04] MEDS ORDERED: OXYC5 PO (17:38)
[2019-07-04] MEDS ORDERED: METO25ER PO (17:42)
[2019-07-04] MEDS ORDERED: [UNRECOGNIZED DRUG - OTHER] TOP (17:43)
[2019-07-04] MEDS ORDERED: MIRENA1 EACH (17:45)
--- NOTE | 2019-07-04 19:15 | NUR ---
ASSUMED PT CARE FROM [facility] PT CURRENTLY GETTING PICC LINE PLACED TO LEFT UPPER ARM FROM [facility]. CHEST XRAY ORDERED FOR CONFIRMATION. DR. VASQUEZ AT BEDSIDE WITH ORDERS TO DRAW A BLOOD CULTURE FROM MEDIPORT TO LEFT UPPER CHEST, WELL FROM PICC LINE. BIPAP IN PLACE WITH PRESSURES 16/8 AND FIO2 40%. PT NOT TOLERATING MASK VERY WELL AND REQUESTING TO USE HER HOME BIPAP MASK INSTEAD; CALLED RT TO ASSESS PT'S HOME BIPAP MASK. RESP RATE 30-40'S. HR APPEARS TO BE SINUS TACH WITH HR 100-110. LOW BLOOD PRESSURES WITH MAP IN THE 50'S; LEVOPHED ON STANDBY DUE TO NO CENTRAL LINE ACCESS. TEMP RIVERA PROBE SHOWING TEMPERATURE OF 101.3; VERY MINIMAL OUTPUT NOTED TO TUBING. PER REPORT PT MAY NEED TO HAVE BALLOON DEFLATED AND INSERTED FURTHER SHE KEEPS HAVING THE URGE TO PEE. APPEARS ALERT AND ORIENTED AND ABLE TO MAKE HER NEEDS KNOWN. TWIN SISTER ESETVAN IS PT'S DECISION MAKER. PT IS ABLE TO MAKE HER WISHES KNOWN. STATES SHE WANTS TO BE A FULL CODE, INTUBATION, CENTRAL LINE, AND PRESSORS ARE OKAY. LACTATED RINGERS ARE CURRENTLY BEING BOLUSED IN TO 20G TO RIGHT UPPER CHEST. WILL RESUME PRESSOR MEDICATIONS AND ANTIOBIOTICS ONCE ACCESS IS ACHIEVED.
--- NOTE | 2019-07-04 19:35 | NUR ---
ARIVAL TO THE UNIT: RECEIVED REPORT FROM ED RN. BARIATRIC BED AQUIRED FOR PT PRIOR TO ARIVAL. TRANSFERED PT TO ICU BARIATRIC BED WITH 2 CELING LIFT'S WITH BIPAP IN PLACE AND IVF RUNNING. PT IS NOTED TO HAVE LEVO AT 12 MCG/KG/HR RUNNING IN THE CENTRAL LINE NOTED IN THE L GROIN AND LEVOFLOXACIN RUNNING THROUGH THE PIV IN THE L HAND. STARTED LR @ 999ML/HR IN THE CENTRAL LINE, UPON FURTHER EXAMINATION OF THE CENTRAL LINE IT IS NOTED TO BE STICKING OUT MUCH FURTHER THAN USUAL NOTED. DR VASQUEZ IS AT BEDSIDE AND ATEMPTS TO DRAW BLOOD OUT OF THE MOST DISTAL PORT, BUT GETS A VERY SLOW RETURN, ORDER TO PULL CENTRAL LINE. PT CONTINUES TO ATEMPT TO TALK ABOUNT HER BIPAP PULLING AT IT TRYING TO STATE NEEDS. PT IS EDUCATED TO LEAVE ARM STILL SO BLOOD PRESSURE CAN BE MEASURED. RIVERA TEMP IS NOTED TO BE ELAVATED AT 101.5, EXTRA BLANKETS REMOVED AND HEAT IN THE ROOM TURNED DOWN.
--- NOTE | 2019-07-04 19:44 | NUR ---
CENTRAL LINE PLACEMENT: DR VASQUEZ AT BEDSIDE ATEMPTS TO PLACE CENTRAL LINE IN THE RIGHT INTERNAL JUGULAR. R WRIST PLACED IN RESTRAINT TO PREVENT PT FROM CONTAMINATING SERILE FEILD. PCT AT BEDSIDE ASSISTING IN HOLDING PT NECK TO THE LEFT. SOME DIFFICULTY NOTED WHILE ACCESSING THE VEIN. PT BEGINS TO YELL OUT AND ATEMPT TO MOVE ARMS AND HEAD. STAFF AND DR VASQUEZ CONTINUE TO REORIENT AND EDUCATED THE PT TO THE NEED FOR THE LINE. PT STATES SHE IS HAVING PAIN AND CAN NO LONGER HANDLE. DR VASQUEZ DISCONTINUES ATEMPT TO PLACE LINE, REMOVES RESTRAINT AND UNCOVERS PT FROM THE STERILE DRAPE.
--- NOTE | 2019-07-04 19:51 | NUR ---
PICC LINE & MEDICAL HX: ELLA DENISE RN AND MAYRA ARANGO RN IN ROOM TO [facility] PICC LINE PLACEMENT. LINE PLACED, AND STAT X-RAY ORDERED FOR LINE PLACEMENT VERAFICATION. DR VASQUEZ VERAFIES LINE IS IN TOO FAR AND ORDERS FOR PICC RN TO WITHDRAW LINE BY 5CM, LEAVING 6CM EXPOSED. DR VASQUEZ GAVE OK TO USE PICC LINE. THIS RN ATTEMPTED TO CALL [facility] NUMBER PROVIDED BY THE FAMILY TO [facility] TO AQUIRE MEDICAL RECORDS FOR THE LAST MONTH. WAS TRANSFERED TO MEDICAL RECORDS WHERE JOSE WAS ABLE GATHER MEDICAL RECORDS FOR ALL OF MAY AND JUNE AND FAX HER TO THE ICU. DR VASQUEZ REVIEWED.
--- NOTE | 2019-07-04 19:56 | NUR ---
REPORT: REPORT GIVEN TO AURA KIM RN. NOTIFIED OF PT CONDITION SINCE ARIVAL TO THE UNIT AND BRIEF KNOWN MEDICAL HX. PT CONTINUES TO BE ON BIPAP AT THIS TIME.
--- NOTE | 2019-07-04 20:10 | NUR ---
UNSUCCESSFUL WITH OBTAINING BLOOD CULTURE FROM MEDIPORT SITE. SITE IS RED AND WARM TO THE TOUCH. INCISION IS FAIRLY NEW WITH MINIMAL DEHISCENCE NOTED; THERE WAS A SOILED BANDAGE AND STERI STRIPS IN PLACE UPON REMOVAL OF DRESSING. PT STATES MEDIPORT IS FAIRLY NEW. ODOR NOTED UPON REMOVAL OF DRESSING.
--- NOTE | 2019-07-04 20:19 | NUR ---
MOTOR LODGE CLERK PLACED CALL OUT TO DR. VASQUEZ IN REGARDS TO ELEVATED LACTIC ACID OF 6.7, WELL LOW BLOOD PRESSURES WITH MAP 55 WITH LEVOPHED AT 30MCG/MIN. UPDATED DR. VASQUEZ REGARDING ATTEMPTING TO DRAW BLOOD FROM [facility] TO SEND BLOOD CULTURES; HOWEVER, [facility] DID NOT DRAW BACK ANY BLOOD. CULTURES WERE SENT FROM PICC LINE TO LEFT UPPER ARM INSTEAD. NEW ORDERS FOR ANOTHER BOLUS OF LR AND VASOPRESSIN GTT.
--- NOTE | 2019-07-04 21:35 | NUR ---
CALL PLACED TO DR. VASQUEZ IN REGARDS TO PT REQUESTING PAIN MEDICATION D/T 08/21 PAIN; PT STATES SHE GENERALLY TAKES OXY AT HOME. NEW ORDERS FOR FENTANYL 25-50 MCG IV Q1HR PRN SEVERE PAIN. ALSO UPDATED REGARDING BLOOD PRESSURE MAINTAINING MAP ABOVE 65; HOWEVER, LOW SYSTOLIC OF 90 WITH LEVOPHED AT 30MCG/MIN WITH VASOPRESSIN GTT ALSO GOING. NEW ORDERS FOR NEOSYNEPHRINE GTT TITRATION MIXED WITH NS INSTEAD OF WATER, WELL ANOTHER BOLUS OF NS. ORDERS TO PLACE CONSULT WITH SURGERY R/T [facility].
--- NOTE | 2019-07-04 22:20 | NUR ---
CALL PLACED TO DR. RAMOS IN REGARDS TO CONSULTATION. NEW ORDERS FOR STAT CHEM 8 AND TO CALL WITH RESULTS.
--- NOTE | 2019-07-04 22:30 | NUR ---
DISCONTINUES NON-PATENT CENTRAL LINE TO LEFT GROIN UTILIZING STERILE TECHNIQUE. HELD MANUAL PRESSURE FOR ABOUT 10 MINUTES; COVERED WITH TEGADERM DRESSING. SITE IS SOFT, NON-TENDER WITH NO SIGNS OF HEMATOMA OR OOZING NOTED. PT TOLERATED WELL.
[2019-07-04 22:37] LABS: Source, Urine Catheter
[2019-07-04 22:39] LABS: Blood, Urine 5+ (Neg); Glucose Qualitative, Urine 1+ (Neg); Ketones, Urine 2+ (Neg); Leukocyte Esterase, Urine 1+ (Neg); Nitrite, Urine Neg (Neg); Protein, Urine 4+ (Neg); Urobilinogen, Urine 2+ (Normal); pH, Urine 6.5 (5.0-8.0)
[2019-07-04 22:44] LABS: Appearance, Urine Turbid (Clear); Bilirubin, Urine 2+ (Neg); Color, Urine Brown (P-Yellow)
[2019-07-04 22:50] LABS: Red Blood Cells, Urine TNTC /hpf (0-2)
[2019-07-04 22:51] LABS: Bun/Creatinine Ratio 14.2 (12.0-20.0); Calcium, Blood 7.2 mg/dL (8.5-10.1); Creatinine, Blood 2.6 mg/dL (0.40-1.00); Potassium, Blood 4.9 mmol/L (3.5-5.5)
[2019-07-04 22:51] LABS: Amorphous Heavy ({null, 0-Heavy}); Bacteria Many /hpf; Squamous Epithelial Cells Few /hpf (Few); Transitional Epithelial Cells Few /hpf ({null, 0-Rare})
--- NOTE | 2019-07-04 23:18 | NUR ---
CALLED DR. RAMOS WITH LAB RESULTS. NEW ORDERS FOR STAT ABG; TO DECREASE LR TO 50MLS/HR AND START NS AT 100MLS/HR
--- NOTE | 2019-07-04 23:38 | NUR ---
CALL PLACED TO SISTER, ESTEVAN, TO UPDATE ON CONDITION
[2019-07-04 23:44] LABS: PCO2 Arterial 41.1 mmHg (35-45); PO2 Arterial 85.7 mmHg (80-100); pH Blood Arterial 7.21 (7.35-7.45)
--- NOTE | 2019-07-04 23:53 | NUR ---
DR. RAMOS IN ROOM. UPDATED REGARDING CRITICAL LAB VALUE. NEW ORDERS TO D/C LR AND NS. START 1/2 NS WITH 2AMP SODIUM BICARB AT 150MLS/HR AND CPK IN THE AM.
[2019-07-05 01:59] LABS: Adenovirus Not Detected (NOT DETECT); Bordetella pertussis Not Detected (NOT DETECT); Chlamydophila pneumoniae Not Detected (NOT DETECT); Coronavirus 229E Not Detected (NOT DETECT); Coronavirus HKU1 Not Detected (NOT DETECT); Coronavirus NL63 Not Detected (NOT DETECT); Coronavirus OC43 Not Detected (NOT DETECT); Human Metapneumovirus Not Detected (NOT DETECT); Human Rhinovirus/Enterovirus Not Detected (NOT DETECT); Influenza A Not Detected (NOT DETECT); Influenza A/2009-H1 Not Detected (NOT DETECT); Influenza A/H1 Not Detected (NOT DETECT); Influenza A/H3 Not Detected (NOT DETECT); Influenza B Not Detected (NOT DETECT); Mycoplasma pneumoniae Not Detected (NOT DETECT); Parainfluenza Virus 1 Not Detected (NOT DETECT); Parainfluenza Virus 2 Not Detected (NOT DETECT); Parainfluenza Virus 3 Not Detected (NOT DETECT); Parainfluenza Virus 4 Not Detected (NOT DETECT); Respiratory Syncytial Virus Not Detected (NOT DETECT)
[2019-07-05] MEDS ORDERED: BENZ100A PO (02:44)
[2019-07-05] MEDS ORDERED: VITAMIN D32000 UNI1 PO (02:45)
[2019-07-05] MEDS ORDERED: VITAMIN D250000 UNIT PO (02:48)
[2019-07-05] MEDS ORDERED: Super B Comple1 EAC2 PO (02:52)
[2019-07-05] MEDS ORDERED: PROAIR RESPICL90 MCG INH (02:55)
[2019-07-05 04:39] LABS: Hematocrit 32.6 % (33.0-51.0); Hemoglobin 10.2 g/dL (11.5-16.0); Mean Corpuscular HGB Conc 31.3 g/dL (31.5-36.5); Mean Corpuscular Volume 93 fL (80-100); Mean Platelet Volume 12.4 fL (9.1-12.4); NRBC ABSOLUTE 0.06 K/mm3 (0.00-0.02); NRBC Auto 5.1 /100 WBC (0.0-0.2); Platelet Count 123 K/mm3 (150-400); RDW Coefficient Variation 15.3 % (11.7-14.2); Red Blood Cell Count 3.52 M/mm3 (3.80-5.20); White Blood Cell Count 1.18 K/mm3 (4.00-11.30)
[2019-07-05 04:59] LABS: Alanine Aminotransfer (ALT/SGP 70 U/L (12-78); Albumin/Globulin Ratio 0.5 (0.8-1.8); Alk Phos 85 U/L (50-136); Anion Gap 13 mmol/L (6-16); Aspartate Aminotrans (AST/SGOT 102 U/L (12-37); Bilirubin, Total 4.4 mg/dL (0.1-1.0); Blood Urea Nitrogen 40 mg/dL (8-24); Bun/Creatinine Ratio 14.2 (12.0-20.0); CO2, Blood 19 mmol/L (21-32); CPK Creatine Kinase 952 U/L (26-193); Calcium, Blood 7.2 mg/dL (8.5-10.1); Chloride, Blood 103 mmol/L (98-108); Creatinine, Blood 2.82 mg/dL (0.40-1.00); Glomerular Filtration Rate 19 (60-); Glucose, Blood 160 mg/dL (70-99); Magnesium, Blood 1.9 mg/dL (1.6-2.4); Phosphorus, Blood 3.3 mg/dL (2.5-4.9); Sodium, Blood 135 mmol/L (136-145); Vancomycin, Random 16.8 ug/mL
--- NOTE | 2019-07-05 05:15 | NUR ---
CALL PLACED TO DR. DOUGLAS UPDATE REGARDING CRITICAL LAB VALUE OF LACTIC ACID. NOTIFIED REGARDING START OF HEPARIN GTT.
--- NOTE | 2019-07-05 05:42 | NUR ---
CALL TO RACHEL UPDATE REGARDING LABS; NO NEW ORDERS
--- NOTE | 2019-07-05 06:20 | NUR ---
END OF SHIFT SUMMARY PT HAS REMAINED ON BIPAP T/O NIGHT; RT ADJUSTED SETTINGS AROUND 0300 FROM 16/6 TO 18/8 D/T LOW TIDAL VOLUMES. BIOX REMAINS GREATER THAN 91%. PT CONTINUES WITH LABORED, RAPID BREATHING. VERY SOB UPON REPOSITIONING. PT REFUSED REPOSITIONING ON SIDES DUE TO HER NOT BEING ABLE TO BREATHE. BOOSTED IN BED FREQUENTLY T/O NIGHT AND SHIFTED HIPS, WELL PERFORMED MULTIPLE LINEN CHANGES D/T LIQUID STOOL X2. PT HAS REMAINED ALERT AND ORIENTED AND ABLE TO MAKE HER NEEDS KNOWN. C/O FREQUENT 10/10 PAIN THAT WAS GENERALIZED; MEDICATED WITH FENTANYL PER ORDERS; HOWEVER, PT CLAIMED WAS UNEFFECTIVE. CALLED DR. DOUGLAS WHO GAVE ORDERS FOR A ONE TIME DOSE OF 0.5MG ATIVAN IV; PT APPEARED TO BE ABLE TO RELAX AND PAIN APPEARED TO BE MORE CONTROLLED WITH FENTANYL PT WAS ABLE TO REST. PT CONTINUES WITH LEVOPHED AT 30MCG/MIN, VASOPRESSIN 0.04UNITS/MIN, NEOSYNEPHRINE AT 75MCG/MIN, 1/2 NS WITH SODIUM BICARB AT 150MLS/HR. HEPARIN GTT AT 15 UNITS/KG/HR. BLOOD PRESSURES REMAIN LABILE PT CONTINUES TO ADJUST BIPAP MASK AND MOVES ARM FREQUENTLY; EDUCATED TO HOLD STILL DURING BP READINGS. MAP TRENDING AROUND 60-65 MMHG. RIVERA CATHETER REMAINS PATENT AND DRAINING MINIMAL AMOUNTS TO GRAVITY; DR. RAMOS AWARE OF OUTPUT. MEDIPORT SITE COVERED WITH TEGADERM DRESSING AFTER FAILED ATTEMPTS TO ACCESS FOR BLOOD CULTURES; SITE REMAINS RED AND WARM TO THE TOUCH. PULLED CENTRAL LINE FROM LEFT GROIN; PLACED TEGARDERM DRESSING WITH NO NOTED OOZING OR HEMATOMA TO SITE. CALL LIGHT IS WITHIN REACH; PT IS ABLE TO MAKE HER NEEDS KNOWN. WILL CONTINUE TO MONITOR UNTIL REPORT IS HANDED OFF TO ONCOMING RN.
--- NOTE | 2019-07-05 06:40 | NUR ---
CALLED DR. DOUGLAS IN REGARDS TO BLOOD CULTURE RESULTS; NO NEW ORDERS
--- NOTE | 2019-07-05 06:55 | NUR ---
CALL RACHEL IN REGARDS TO CONFLICTING ORDERS FOR CALCIUM GLUCONATE AND CALCIUM CHLORIDE; ORDERS TO D/C CALCIUM GLUCONATE.
--- NOTE | 2019-07-05 07:06 | NUR ---
REPORT HANDED OFF TO [facility].
--- NOTE | 2019-07-05 08:00 | NUR ---
IV BLOOD PRESSURE MEDS: LEVOPHED IS MAXED OUT AT 30 MCG/MIN, VASOPRESSIN MAXED OUT AT 0.04 UNITS/MIN, PHENYLEPHRINE 75 MCG/MIN. WHILE AT THE BEDSIDE FOR REPORT TITRATED UP TO 125 MCG/MIN. WHILE RECEIVING REPORT ON ANOTHER PT A SHORT TIME LATER THE LEARNING AND DEVELOPMENT DIRECTOR JUSTO KANG TITRATED PHENYLEPHRINE UP TO 225 MCG/MIN, WHICH WAS QUICKLY INCREASED TO 300 MCG/MIN.
--- NOTE | 2019-07-05 08:05 | NUR ---
CALL TO DR VASQUEZ: CALLED TO NOTIFY OF LOW BLOOD PRESSURES ALTHOUGH MAXED OUT ON THE CURRENT BLOOD PRESSURE MEDICATIONS. WAS TOLD TO RUN CALCIUM CLORIDE THEN WILL REASSESS NEED FOR FLUID BOLUS.
--- NOTE | 2019-07-05 08:15 | NUR ---
ULTRASOUND: DUE TO RESPRATORY FUNCTION THIS RN FEELS IT WOULD NOT BE IN THE BEST INTEREST OF THE PT TO BE TURNED ON THE HER SIDE FOR THE LENGTH OF TIME NEEDED TO POSSIBLY OBTAIN CLEARER PICTURES OF HER KIDNEYS.
--- NOTE | 2019-07-05 10:00 | NUR ---
ART LINE: ART LINE PLACED IN L BRACHIAL BLOOD PRESSURES APPEAR TO BE BETTER THAN NOTED WITH BLOOD PRESSURE CUFF. MAP IS >60. WILL CONTINUE TO MONITOR AND ASSESS FURTHER.
--- NOTE | 2019-07-05 10:08 | NUR ---
Assumed Care: Received report from NOC RN. PT blood pressure is noted to be low with map below 60 while receiving report, see vital signs. PT is on 3 different blood pressure medications that are maxed out, see RN IVF notes. DR sears see previous RN notes. PT is A/O to place and year, but states Bin for president. PT needs elevated verbal stimulation in between questions in order for her to answer questions, otherwise PT appears to fall asleep. BIPAP is in place, with 18/8 FiO2 35% /c PT sats >92%. Lung sounds are very diminished and RR is elevated in the 40's. diesel technician in the room to view kidneys and bladder. Tech is unable to obtain a clear picture see RN notes. Dr Luis in to see the PT will not be intubating at this time will continue to monitor for need. Dr Lyman came in to see pt, notified her of possible dialysis in the next few days. Dr Luis consulted Anesthesiologist national sales executive to place ART line. Dr Burnette placed ART line in the L Brachial. PT tolerated well did not move or cry out in pain during procedure. Awaiting on ECHO. Will continue to monitor and assess further.
--- NOTE | 2019-07-05 10:28 | NUR ---
MEDIPORT: MEDIPORT IS NOT ACCESSED. BIOLOGY SPECIALIST RNS ATTEMPTED TO ACCESS FOR BLOOD DRAW TO TEST BLOOD CULTURES, BUT UNABLE TO ACCESS WITH MULTIPLE ATTMEPTS.
--- NOTE | 2019-07-05 10:33 | NUR ---
ECHOCARDIOGRAM COMPLETED
--- NOTE | 2019-07-05 11:45 | NUR ---
LOW BLOOD PRESSURE AND UPDATE: PT BLOOD PRESSURE DECREASE NOTED THROUGH THE ARTERIAL LINE. DR VASQUEZ IS AWARE AND ORDERS AN IVF BOLUS. BLOOD PRESSURE CONTINUES TO MAINTAIN, BUT DOES NOT INCREASE T/O THE BOLUS. DR VASQUEZ ORDERS LABS. ABG COMES BACK WITH A CRITICAL pH OF 6.96. DR VASQUEZ NOTIFIED OF THE ABG LAB VALUES BY JUSTO KANG RN.
--- NOTE | 2019-07-05 12:00 | NUR ---
CALL TO SISTER: CALLED NUMBER FOR ESTEVAN THE SISTER NOTIFIED HER OF THE CURRENT SITUATION AND THAT SHE SHOULD COME IN SOONER THAN LATER.
--- NOTE | 2019-07-05 12:07 | NUR ---
MEDIPORT REMOVAL: DR KELLY IN TO SEE PT AND REMOVE MEDIPORT. SOME BLEEDING NOTED, RESOLVED WITH PRESSURE AND PRESSURE BAG. TIP SENT TO LAB FOR CULTURE. TIP OF MEDIPORT NOTED TO BE RED AND APPEARS TO BE CLOTED.
[2019-07-05 12:31] LABS: PCO2 Arterial 59.4 mmHg (35-45); PO2 Arterial 60.2 mmHg (80-100); pH Blood Arterial 6.96 (7.35-7.45)
[2019-07-05 12:34] LABS: Hematocrit 27.5 % (33.0-51.0); Hemoglobin 8.2 g/dL (11.5-16.0); Mean Corpuscular HGB 29.3 pg (26.0-34.0); Mean Corpuscular HGB Conc 29.8 g/dL (31.5-36.5); Mean Platelet Volume 11.9 fL (9.1-12.4); NRBC ABSOLUTE 0.25 K/mm3 (0.00-0.02); NRBC Auto 10.5 /100 WBC (0.0-0.2); Platelet Count 83 K/mm3 (150-400); RDW Coefficient Variation 15.7 % (11.7-14.2); RDW Standard Deviation 57.3 fL (35.1-46.3); White Blood Cell Count 2.37 K/mm3 (4.00-11.30)
[2019-07-05 12:37] LABS: Mean Corpuscular Volume 98 fL (80-100)
[2019-07-05 12:53] LABS: Albumin, Blood 1.5 g/dL (3.4-5.0); Albumin/Globulin Ratio 0.5 (0.8-1.8); Bilirubin, Total 3.4 mg/dL (0.1-1.0); Bun/Creatinine Ratio 12.5 (12.0-20.0); Calcium, Blood 6.4 mg/dL (8.5-10.1); Creatinine, Blood 2.89 mg/dL (0.40-1.00); Globulin, Blood 2.9 g/dL (2.2-4.0); Potassium, Blood 4.9 mmol/L (3.5-5.5); Total Protein, Blood 4.4 g/dL (6.4-8.2)
--- NOTE | 2019-07-05 13:20 | NUR ---
INTUBATION: DR IN THE ROOM, SEVERAL RT AND NURSING STAFF IN THE ROOM. 1305: 50MG PROPOFOL PUSHED, BITE BLOCK PUT IN PLACE 1308: SCOPE DOWN THE THROAT AND SUCTION DONE 1310: ET TUBE PUT IN PLACE 25 @ TEETH, 8.0 TUBE 1311: 50MG OF PROPOFOL PUSHED VENT SETTINGS AC/450/20/5/100%
[2019-07-05 13:27] LABS: BAND PERCENT MAN 2 % (0-8); BASOPHILS ABSOLUTE MAN 0.07 K/mm3 (0.00-0.23); BASOPHILS PERCENT MAN 3 % (0-2); EOSINOPHILS ABSOLUTE MAN 0.02 K/mm3 (0.00-0.68); EOSINOPHILS PERCENT MAN 1 % (0-6); LYMPHOCYTES ABSOLUTE MAN 1.46 K/mm3 (0.84-5.20); LYMPHOCYTES PERCENT MAN 62 % (21-46); METAMYELOCYTE ABSOLUTE MAN 0.07 K/mm3 (0.00-0.00); METAMYELOCYTE PERCENT MAN 3 % (0-0); MONOCYTES ABSOLUTE MAN 0.49 K/mm3 (0.16-1.47); MONOCYTES PERCENT MAN 21 % (4-13); MYELOCYTE ABSOLUTE MAN 0.14 K/mm3 (0.00-0.00); MYELOCYTE PERCENT MAN 6 % (0-0); NEUTROPHILS ABSOLUTE MAN 0.09 K/mm3 (1.96-9.15); SEG NEUTROPHILS PERCENT MAN 2 % (41-73); TOTAL CELLS COUNTED 100
--- NOTE | 2019-07-05 14:09 | NUR ---
PAL CARE VISIT. CALLED BY ICU WITH UPDATE ON CURRENT STATUS, DR/STAFF PREPARING TO INTUBATE PT AND SISTER, ESTEVAN, WHO IS POA FOR HEALTHCARE ARRIVING SHORTLY. I CAME TO UNIT AROUND 1315 TO SUPPORT SIS/ASSIST WITH EXPLAINING THE DIRE NATURE OF ALONDRA'S CURRENT STATUS, ONGOING CONCERNS FOR HYPOTENTION, DESPITE THREE PRESSORS AND MAX MEDICAL THERAPY. ESTEVAN DOES NOT WANT TO HEAR ANTHING THAT MIGHT INFER THAT ALONDRA IS IN A LIFE THREATENING SITUATION. ALONDRA HAS BEEN RECEIVING ALL OF HER CANCER TX AND MEDICAL CARE OUT OF [facility], WITH THE EXCEPTION OF HER EDGER TAILER, DR RAMOS, LOCALLY. I DID ADVISE ESTEVAN THAT INTUBATION WOULD NOT RESOLVE ALL OF ALONDRA'S ISSUES AND THAT FURTHER DECLINE MAY OCCUR SO THAT IF PT DECLINES, ESTEVAN WOULD BE PREPARED. ESTEVAN IS ANGRY THAT SHE WAS NOT CALLED AN HOUR AGO. EMR NOTES REVIEWED AND ESTEVAN WAS ADVISED YESTERDAY OF THE CRITICAL NATURE OF HER SISTER'S HEALTH CONCERNS AT THAT TIME. ESTEVAN DROVE DOWN FROM [place] THIS AM AND HAD JUST ARRIVED WHEN WE MET. SINCE HER ARRIVAL SHE HAS BEEN TALKING NON STOP WITH STAFF AND DRS ABOUT HER OWN MULTIPLE HEALTH ISSUES, SURGERIES AND INTUBATIONS. I ASKED THAT WE FOCUS ON ALONDRA AT THIS TIME. ESTEVAN HAS ASKED FOR A PATIENT ADVOCATE, PSYCHOLOGIST CHIEF AND A JUNIOR ADMINISTRATIVE ASSISTANT. I NOTIFIED CHRISTINA, DATABASE PROGRAMMER OF THOSE REQUESTS AND INFORMED ESTEVAN THAT OUR PT ADVOCATE IS NOT AVAILABLE ON THE WEEKEND BUT THAT THE DATABASE PROGRAMMER WOULD BE ABLE TO SPEAK WITH HER TODAY. I ASKED ESTEVAN TO STEP OUT OF THE ROOM AND UNIT DURING INTUBATION. SHE WAS INSISTENT THAT SHE REMAIN IN ROOM. SHE WAS IN THE RM, HOLDING PT'S HAND AND ON THE PHONE GIVING UPDATES ON PT STATUS SHE UNDERSTOOD IT TO OTHERS. WITH 'S OK, I ASSISTED ESTEVAN IN GOWNING UP FOR ISOLATION TO BE ABLE TO STAY IN ROOM. I ASKED ESTEVAN TO TURN HER PHONE AND/OR RINGER OFF AND TO REFRAIN FROM USING DURING THE PROCEDURE. ESTEVAN AGREED AND STAYED IN THE ROOM, SITTING DURING INTUBATION. DR VASQUEZ, TWO RNS, THREE RTS ASSISTED WITH PROCEDURE. ANSWERED MANY QUESTIONS FROM ESTEVAN AFTER PROCEDURE. PT IS OBTUNEDED, UNRESPONSIVE. AFTER PROCEDURE I CAME BACK IN ROOM TO SPEAK WITH ESTEVAN. SHE IS ANGRY AND WANTS MEDICAL RECORDS FROM PT'S CARE PROVIDERS IN [place] WHO TOLD HER "SHE WAS FINE" EARLIER IN THE WEEK AND STARTED CHEMO BASED ON THAT. SHE HAD QUESTIONS ABOUT HER PLT COUNT. I DISCUSSED HER HIGH RISK FOR SEPSIS WITH NEUTROPENIA, CANCER AND TREATMENT, WELL HER MANY OTHER CHRONIC HEALTH ISSUES SUCH DM, OBESITY, INCONTINENCE AND LACK OF SELF CARE OR CG ASSIST AT HOME. PT LIVES IN [place] ALONE. SHE HAS CAREGIVING HELP FOR MEAL PREP FOR MINIMAL HOURS PER WEEK. PER PT, SHE VOIDS IN BED NEEDED AND WAITS FOR CG TO CLEAN HER UP OR CALLS HER TO CLEAN UP. SHE IS TRANSPORTED TO [facility] IN [place]. ESTEVAN TELLS ME ABOUT HER KIM IN PRAYER, MIRACLES AND ANGELS THAT WOULD KEEP HER SISTER ALIVE LIKE THEY DID HER DURING HER CRISIS. ESTEVAN AGAIN TURNS HER FOCUS AND CONVERSATION ON LISTING HER OWN SURGERIES, ILLNESSES, CLOSE CALLS AND EVENTS IN RECENT YEARS. I CONTINUED TO REDIRECT ESTEVAN TOWARDS PT'S CURRENT ISSUES AND CONCERNS. SUPPORT OFFERED. I BROUGHT HER WATER AND LET HER KNOW THE JUNIOR ADMINISTRATIVE ASSISTANT HAD BEEN CALLED TO VISIT. CASE CONFERENCED FURTHER WITH RN AND BEFORE LEAVING UNIT.
--- NOTE | 2019-07-05 14:10 | NUR ---
UPDATE: OG TUBE PLACED REMOVED APPROX 450ML OF BLACK COFFEE GROUND FLUID FROM STOMACH. HEPARIN RESTARTED AT 13 UNITS/KG/HR PER PHARMACY
--- NOTE | 2019-07-05 14:14 | NUR ---
Patient is being worked on by staff and sister, Yasmin is bedside. Yasmin tells me about her frustrations, about her great knowledge of medicine and about her carlos. Yasmin asks me to pray for the patient, which I do, according to Yasmin's belief system. I also provide a calming presence and pastoral auto club travel counselor. Yasmin asks me to return when family arrive from out of town. I tell her to tell any staff member when I am needed ans they will notify me.
--- NOTE | 2019-07-05 14:15 | NUR ---
ART LINE: ART LINE IN L BRACHIAL DOES NOT APPEAR TO BE READING AFTER X-RAY OF CHEST. LINE ZEROED, ATTEMPTED TO DRAW BLOOD AND NO RETURN NOTED. DR VASQUEZ NOTIFIED.
--- NOTE | 2019-07-05 14:20 | NUR ---
NEW ART LINE: DR VASQUEZ PLACED NEW ART LINE IN R BRACHIAL
[2019-07-05 15:04] LABS: PCO2 Arterial 34.9 mmHg (35-45); pH Blood Arterial 7.04 (7.35-7.45)
[2019-07-05 15:06] LABS: PO2 Arterial 74.9 mmHg (80-100)
--- NOTE | 2019-07-05 15:49 | NUR ---
SISTER LINDA: THE PT SISTER ESTEVAN MCKEON TO THE UNIT. DR IN TO UPDATE ON PT CONDITION WITH THE SISTER WHO HAS "POWER OF IT ARCHITECTURE ANALYST". SISTER IS HEARD TO STATES "I DON'T WANT HER TO HEAR YOU SAY THAT" REFERING TO THE PT WHEN DR VASQUEZ DISCUSSED THE POSSIBLE POOR PROGNOSIS OF THE PT. SISTER IS HEARD TO MENTION SEVERAL TIMES T/O THE CONVERSATION OF THE NUMEROUS SURGERIES SHE HERSELF HAS BEEN THROUGH AND MEDIPORTS REJECTED. CONTINUES TO STATES HOW BOTH THE PT AND HER HAVE ALMOST IN THE PAST AND ALWAYS PULL THROUGH.
--- NOTE | 2019-07-05 16:04 | NUR ---
RESPRATORY: CALL TO DR VASQUEZ TO UPDATE ON ABG. NOTIFIED OF PT INCREASED NEED FOR O2. RECEIVED NEW ORDERS FOR VENT SETTINGS AND NEBULIZERS.
[2019-07-05 16:25] LABS: Hematocrit 32.6 % (33.0-51.0); Hemoglobin 9.7 g/dL (11.5-16.0)
--- NOTE | 2019-07-05 16:50 | NUR ---
REPORT TO ELLA: REPORT GIVEN TO ELLA DENISE AT THIS TIME.
--- NOTE | 2019-07-05 19:17 | NUR ---
Took over care from Trupti DODSON at 1645. patient was decreaseing sats and at 1740 RT changed vent settings to AC 20, TV 350 from 450, FiO2 100%, Peep 9.0 from 7.0. 1743 patient continued to decrease sats and vent settingare now AC 20 TV 350, FiO2 100% Peep 10.0. At 1810 patient sats droopped to mid 70's and HR low 70's and called Dr Luis and changed PEEP to 15.0 and after about 10 minutes sats climbed to 94%, started Epi per earlier instructions for map less than 60 at 5 mcg/min and Systolic increased 90-100 and MAP >60. 1741 CBG done and was 27 and gave 1 amp D50, re-take at 1842 CBG 71 no further action pass on at report. 164 Dr Lyman called and gave med orders, entered and administered. Gave report to Pearl DODSON and he took over care. Sister in room talks to patient and a majority of the time talks about her own past care and that she fires Drpetra and nurses almost everytime she is cared for and also states to family members in room and on multiple phone calls that she has not needed to here yet, but is very open that Dr Butler is not allow anywhere near her. She is very appropriate as long as you are doing what falls in her guidlines of care.
[2019-07-05 19:55] LABS: PO2 Arterial 162 mmHg (80-100); pH Blood Arterial 6.89 (7.35-7.45)
--- NOTE | 2019-07-05 20:00 | NUR ---
ASSUMED CARE OF PT. REPORT RECEIVED. PT PRESENTS IN BED. VENTED. AC 20, Tv300, 100 % FIO2, PEEP 15. PT UNRESPONSIVE AT THIS TIME. DOES NOT RESPOND TO ETT SUCTIONING. RETURN OF REDDISH COLORED SECRETIONS IN SCANT AMOUNTS. OGT TURNED BACK TO LIWS. RETURN OF BROWN COLORED SECRETIONS. PT ON A MULTITUDE OF PRESSORS TO MAINTAIN BLOOD PRESSURES WITH MAP AT OR JUST ABOVE 60. SEE EMAR FOR PRESSOR DETAILS. TWO OF PT'S SISTERS AT BEDSIDE. UPDATE GIVEN. ANSWERED QUESTIONS. WILL REVIEW CHART AND PLAN OF CARE FOR THIS PT.
--- NOTE | 2019-07-05 22:00 | NUR ---
HAVE NEEDED TO INCREASE PRESSORS TO MAX. ADDED EPI DRIP STARTING AT 5 MCG'S. TEACHING DONE WITH FAMILY ON PT'S STATUS AND MEDICAL OBSERVATION OF PT'S STATUS. CALL MADE TO DR VASQUEZ SECONDARY TO PT'S BLOOD GLUCOSE STATUS AND NEEDING TO ADMINISTER D50W. ALSO DISCUSSED RESULTS OF ABG. ORDERS RECEIVED.
--- NOTE | 2019-07-06 00:30 | NUR ---
HAVE INCREASED PT'S EPI DRIP TO 17MCG'S HAVE PLACED PROPOFOL ON STANDBY SECONDARY TO HYPOTENSION. OF NOTE: AFTER SPEAKING WITH DR VASQUEZ ON THE TELEPHONE EARLIER MD HAD REQUESTED THAT A CALL BE MADE TO DR RAMOS TO INFORM HIM OF THE NEW ORDERS AND THIS WAS DONE. ADDITIONAL ORDERS WERE RECEIVED.
--- NOTE | 2019-07-06 00:43 | NUR ---
Patient is non-responsive, family bedside. I provided a pastoral corporate counselor, a calming presence and prayer. Family voices appreciation for the visit.
[2019-07-06 01:39] LABS: PCO2 Arterial 45.5 mmHg (35-45); PO2 Arterial 102 mmHg (80-100); pH Blood Arterial < 6.81 (7.35-7.45)
--- NOTE | 2019-07-06 02:00 | NUR ---
INCREASED EPI DRIP TO 20 MCG'S WHERE MARGINAL BLOOD PRESSURE RESPONSE OCCURRED. PT HAS REMAINED COMATOES. DOES NOT RESPOND DURING ORAL CARE OR SUCTIONING. HAD REMOVED RESTRAINTS EARLIER. DISCUSSED IN DEPTH WITH PT'S SISTER WHO IS THE POA FOR PT PT'S POOR PROGNOSIS AND POOR RESPONSE TO TREATMENT WITH PRESSORS. SISTER, ESTEVAN, IS TO HAVE MEETING WITH FAMILY THAT ARE ALREADY HERE TO CONTINUE CURRENT PLAN OF CARE OR MAKE PT DNR VERSUS WITHDRAWAL OF CARE. CALL MADE AGAIN TO DR VASQUEZ TO DISCUSS PT'S FAILING PROGRESS AND THAT FAMILY IS GOING TO MAKE A DECISION ON PT'S CARE SOON.
[2019-07-06 02:20] LABS: International Normalized Ratio 3.59; Prothrombin Time Results 33.9 Sec (9.7-11.5)
--- NOTE | 2019-07-06 02:30 | NUR ---
OF NOTE: PT'S HEPARIN HAS BEEN ON HOLD FOR OVER 4 HOURS SECONDARY TO CONSISTANTLY HIGH PTT RESULTS 90 +. OGT HAS SIGNS OF BLOOD TINGED STOMACHE CONTENT. THIS DISCUSSED WITH DR VASQUEZ WELL.
--- NOTE | 2019-07-06 04:00 | NUR ---
PT'S SISTERS AND FAMILY HAD REQUESTED PT TO BE COMFORT CARE ONLY AND TO WITHDRAWAL OF CARE. ADMINISTERED 50 MCG FENTANYL PRIOR TO REMOVING ETT. MINOR, RESPIRATORY THERAPIST REMOVES ETT TUBE. FAMILY AT BEDSIDE. AT 0320 PT . CALL MADE TO DR RAMOS, DR VASQUEZ, AND DR DOUGLAS TO INFORM THEM THAT PT HAD PASSED.
== END 2019-07-06 03:20 | DRG 871 ==
LOC: ER 13:46 → ICUW 16:34
PROVIDERS: Emergency Medicine; Internal Medicine; Internal Medicine Critical Care Medicine; Internal Medicine Nephrology; ADMIT Internal Medicine
PROC: 02HV33Z Insertion of Infusion Device into Superior Vena Cava, Percutaneous Approach (ICD-10-PCS; principal; 2019-07-04)
PROC: 3E033XZ Introduction of Vasopressor into Peripheral Vein, Percutaneous Approach (ICD-10-PCS; 2019-07-04)
PROC: 0BH17EZ Insertion of Endotracheal Airway into Trachea, Via Natural or Artificial Opening (ICD-10-PCS; 2019-07-05)
PROC: 5A1935Z Respiratory Ventilation, Less than 24 Consecutive Hours (ICD-10-PCS; 2019-07-05)
PROC: 03HY33Z Insertion of Infusion Device into Upper Artery, Percutaneous Approach (ICD-10-PCS; 2019-07-05)
DX: A41.51 Sepsis due to Escherichia coli [E. coli] (principal); R65.21 Severe sepsis with septic shock; J96.01 Acute respiratory failure with hypoxia; N17.9 Acute kidney failure, unspecified; N39.0 Urinary tract infection, site not specified; Z68.42 Body mass index [BMI] 45.0-49.9, adult; A40.8 Other streptococcal sepsis; E03.9 Hypothyroidism, unspecified; E66.01 Morbid (severe) obesity due to excess calories; Z51.5 Encounter for palliative care; D69.6 Thrombocytopenia, unspecified; K74.60 Unspecified cirrhosis of liver; C50.919 Malignant neoplasm of unspecified site of unspecified female breast; D70.9 Neutropenia, unspecified; R50.81 Fever presenting with conditions classified elsewhere; J44.9 Chronic obstructive pulmonary disease, unspecified; E11.22 Type 2 diabetes mellitus with diabetic chronic kidney disease; I12.9 Hypertensive chronic kidney disease with stage 1 through stage 4 chronic kidney disease, or unspecified chronic kidney disease; N18.3 Chronic kidney disease, stage 3 (moderate); B96.89 Other specified bacterial agents as the cause of diseases classified elsewhere; Z86.711 Personal history of pulmonary embolism; Z79.01 Long term (current) use of anticoagulants
CPT/HCPCS: 0099U; 31500; 31720; 36415; 36556; 36569; 36600; 36620; 51702; 51798; 71045; 76770; 80048; 80053; 80202; 81001; 82330; 82550; 82803; 82947; 83605; 83615; 83735; 83880; 84100; 84145; 84484; 85014; 85018; 85025; 85027; 85610; 85730; 87040; 87070; 87077; 87086; 87147; 87186; 93005; 93010; 93308; 93321; 94002; 94640; 94660; 96365-59; 96366-59; 96368; 96375-59; 99285-25; C1751; C9113; J0171; J0461; J1644; J1720; J1815; J1956; J2060; J2370; J2704; J3010; J3370; J7030; J7040; J7050; J7060; J7070; J7120; J7799